=== PATIENT | female | born 1965 | race Caucasian/White ===

== ENCOUNTER 2017-06-02 12:31 | Emergency (ER) | payer OTHER ==
[2017-06-02 12:53] VITALS: BP 129/63
--- NOTE | 2017-06-02 13:41 | UC ---
Complaint Female HPI - HPI Summary HPI Summary: Pt presents with c/o uti symptoms of frequency, urgency and dysuria. Pt also reports that she has had episodic incontinence of of stool and urine. Pt has MS and thinks that her MS is "flaring" She reports that ~ 2 weeks ago she was trying to get out of her car and she "wrenched" her right leg and knee. Pt states that she has osteoarthritis in right hip and low back pain. - History Of Current Complaint Chief Complaint: UCGU Stated Complaint: UTI SYMPTOMS Time Seen by Provider: 06/02/17 13:03 Hx Obtained From: Patient ?: No Onset/Duration: Lasting Weeks - 1 Timing: Constant Severity Initially: Mild Severity Currently: Mild Pain Intensity: 8 Character: Dull Aggravating Factor(s): Movement Associated Signs And Symptoms: Positive: Back Pain - Allergies/Home Medications Allergies/Adverse Reactions: Allergies Allergy/AdvReac Type Severity Reaction Status Date / Time Amoxicillin [From Augmentin] Allergy Difficulty Verified 05/07/14 14:45 Breathing Bee Venom Allergy Anaphylatic Verified 06/02/17 12:53 Shock Clavulanic Acid Allergy Difficulty Verified 05/07/14 14:45 [From Augmentin] Breathing Latex Allergy Hives Verified 06/02/17 12:53 Sulfamethoxazole Allergy Difficulty Verified 05/07/14 14:45 w/Trimethoprim Breathing [From Bactrim] chg scrub Allergy Hives Uncoded 06/02/17 12:53 Home Medications: Home Medications Meloxicam 7.5 mg PO BID 06/02/17 [History Confirmed 06/02/17] amLODIPine TAB* [Norvasc 5 mg TAB*] 10 mg PO DAILY 06/02/17 [History Confirmed 06/02/17] PMH/Surg Hx/FS Hx/Imm Hx Previously Healthy: No - MS - Surgical History Surgical History: Yes Surgery Procedure, Year, and Place: choley 1986. 92, 85. gastric sleeve 2016 - Family History Known Family History: Positive: Cardiac Disease - Social History Alcohol Use: Daily Alcohol Amount: 1/2 glass wine Substance Use Type: None Smoking Status (MU): Never Smoked Tobacco Have You Smoked in the Last Year: No - Immunization History Most Recent Influenza Vaccination: no Review of Systems Constitutional: Negative Skin: Negative Eyes: Negative ENT: Negative Respiratory: Negative Cardiovascular: Negative Gastrointestinal: Negative Genitourinary: Negative Motor: Weakness - secondary to MS Neurovascular: Decreased Sensation - lower extremities, secondary to MS Musculoskeletal: Myalgia - low back Neurological: Negative Psychological: Negative All Other Systems Reviewed And Are Negative: Yes Physical Exam Triage Information Reviewed: Yes Appearance: Well-Appearing Vital Signs: Initial Vital Signs Temp 98.6 F 06/02/17 12:44 Pulse 62 06/02/17 12:44 Resp 14 06/02/17 12:44 BP 129/63 06/02/17 12:44 Pulse Ox 100 06/02/17 12:44 Vital Signs Reviewed: Yes Eye Exam: Normal ENT Exam: Normal Neck exam: Normal Respiratory Exam: Normal Cardiovascular Exam: Normal Abdominal Exam: Normal Musculoskeletal Exam: Normal - baseline for preexisting MS Neurological Exam: Normal - has history of MS Psychological Exam: Normal Skin Exam: Normal Complaint Female Dx - Course Course Of Treatment: I disucssed with the pt the need to follow up with her PCP , MS and orthopedic provider. Pt verbalized understanding and agreed to plan of care. - Differential Dx/Diagnosis Differential Diagnosis/HQI/PQRI: Urinary Tract Infection Provider Diagnoses: Hematuria. low back pain Discharge - Discharge Plan Condition: Stable Disposition: HOME Patient Education Materials: Low Back Strain (ED), Hematuria (ED) Referrals: Non Staff,Doctor [Primary Care Provider] - 1 Day (Please follow up with your PCP and your MS provider or orthopecdic provider as soon as possible. )
== END 2017-06-02 13:24 | disposition home or self-care (01) ==
LOC: UCCORT 12:31
DX: M54.5 Low back pain (principal); R31.9 Hematuria, unspecified; G35 Multiple sclerosis
CPT/HCPCS: 81003; 99201; G0463

== ENCOUNTER 2019-09-23 13:24 | Emergency (ER) | payer BC, OTHER ==
--- OUTSIDE RECORDS SUMMARY | 2019-09-23 13:31 | XMS REPORT | Continuity of Care Document ---
:1965 External Reference #:[id number] Author Name Alexa De La Vega NP (transmitted by agent of provider Ana Cristina Gomez) Address [address] [place] [id number] Care Team Providers Name Role Phone Peter Via PA - Urology Care Team Information [employer] [phone] Margarito White MD - Gastroenterology Care Team Information [employer] Drafting Teacher [phone] Asad Hein M.D. - Oral and Care Team Information [employer] Drafting Teacher [phone] Maxillofacial Radiology Eliazar Stevens MD - Surgery Care Team Information [employer] Drafting Teacher [phone] Problems Active Problems Provider Date Multiple sclerosis Chuck Jain RPA Onset: 04/02/2012 Constipation Chuck Jain RPA Onset: 04/02/2012 H/O: non-drug allergy Chuck Jain RPA Onset: 04/02/2012 Medications Sole Leveler (Current) Use Encounter Chuck Jain RPA Onset: Abnormal urinary stream Chuck Jain RPA Onset: 04/21/2012 Backache Chuck Jain RPA Onset: 04/21/2012 Family history of diabetes mellitus Chuck Jain RPA Onset: 11/30/2012 Abnormal glucose level Chuck Jain RPA Onset: 11/30/2012 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 Changes in skin texture Chuck Jain RPA Onset: 02/23/2013 Cellulitis Chuck Jain RPA Onset: 05/11/2013 Disorder of skin and/or subcutaneous tissue Chuck Jain RPA Onset: Eruption Chuck Jain RPA Onset: 05/25/2013 Acute sinusitis Chuck Jain, RPA Onset: 09/27/2013 Paronychia of finger Chuck Jain, RPA Onset: 09/27/2013 Acute bronchitis Chuck Jain, RPA Onset: 09/30/2013 Hematuria syndrome Chuck Jain, 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 Screening mammography SusyChuck agrawal, RPA Onset: 06/02/2014 Taking medication Chuck Jain, RPA Onset: 11/14/2014 Screening for osteoporosis Chuck Jain, RPA Onset: 06/05/2018 Adult health examination Chuck Jain, RPA Onset: 06/05/2018 Other hemorrhoids Chuck Jain, RPA Onset: 05/14/2018 Jaw pain Chuck Jain, RPA Onset: 03/06/2018 Edema SusyChuck agrawal, RPA Onset: 09/04/2017 Pain in left lower limb Chuck Jain RPA Onset: 09/04/2017 Urinary tract infectious disease Chuck Jain, RPA Onset: 01/31/2017 Screening for malignant neoplasm of colon Chuck Jain, RPA Onset: 2014 Laboratory Examination, Unspecified Chuck Jain, RPA Onset: 05/29/2015 Screening for malignant neoplasm of cervix Chuck Jain, RPA Onset: 05/29 Gynecologic examination Chuck Jain, RPA Onset: 05/29/2015 Dysphagia SusyChuck agrawal, RPA Onset: 05/22/2015 Hyperlipidemia SusyChuck agrawal, RPA Onset: 04/25/2015 Essential hypertension Chuck Jain RPA Onset: 04/11/2015 Myalgia & Myositis Unspecified Chuck Jain RPA Onset: 04/11/2015 Dizziness and giddiness Chuck Jain, RPA Onset: 04/11/2015 Arthralgia of the pelvic region and thigh Chuck Jain RPA Onset: 2014 Stress SusyChuck agrawal, RPA Onset: 11/14/2014 Vitamin deficiency Chuck Jain, RPA Onset: 11/14/2014 Social History Type Date Description Comments Sex Unknown ETOH Use Rarely consumes alcohol Tobacco Use Start: Unknown Patient has never smoked Recreational Drug Use Denies Drug Use Smoking Status Reviewed: 07/23/19 Patient has never smoked Tattoo/Piercing Tattoo shoulder Tattoo/Piercing Pierced ears Allergies, Adverse Reactions, Alerts Active Allergies Reaction Severity Comments Date Sulfa Antibiotics hives 04/02/2012 Augmentin hives 04/02/2012 Bee Sting anaphalaxis 04/02/2012 Wasps hives 04/02/2012 Medications Active Medications SIG Qnty Indications Ordering Date Provider Azithromycin 2 today, 1 daily 6tabs J01.90 [place], 07/23/2019 250mg Tablets for 4 days MITCHELL Liu Methylprednisolone take as directed 21units J01.90 [place], 07/23/2019 4mg TBPK by package MITCHELL Liu insert Tizanidine HCL take 1-2 at 60caps M79.10 [place], 07/23/2019 4mg Capsules bedtime for back MITCHELL Liu spasms Albuterol Sulfate HFA 2 puffs every 4 25.5gm J06.9 [place], 07/23/2019 hours as needed MITCHELL Liu 108(90Base) mcg/Act for cough or Aerosol shortness of breath Proventil HFA 2 puffs every 20.1gm J06.9 [place], 07/23/2019 108(90Base) four hours as MITCHELL Liu mcg/Act Aerosol needed for shortness of breath/cough Nystatin apply to 30g E78.5 [place], 06/05/2018 888878Dnty/GM Cream affected area Ana Cristina twice a day Epipen 2-Barry as directed 1units V15.09 [place], 04/02/2012 0.3mg/0.3ML Device Ana Cristina Ventolin HFA 2 puffs q4hr as Unknown 108(90Base) needed sob mcg/Act Aerosol Copaxone 40 MG Every Unknown 20mg/ml Soln Prefill Other Day Syringe Biotin 1 by mouth every Unknown 1000mcg Tablets day Multi Vitamin 1 by mouth every Unknown Tablets day Vitamin B-12 Unknown 500mcg Lozenges Colace 1 po bid 60caps Unknown 100mg Capsules Provigil 1 po qd Unknown 200mg Tablets Calcium 500 +D 1 po qd Unknown [id number] Tablets Vitamin D-1000 1 po qd Unknown 1000Unit Tablets Zofran 1 po 8 hours prn Unknown 8mg Tablets nausea Immunizations CPT Code Status Date Vaccine Lot # U-Flu Given 08/06/2017 Influenza,Unspecified Vital Signs Date Vital Result Comment 07/23/2019 8:36am Height 61 inches 5'1" Weight 211.00 lb BP Systolic Recheck 112 mmHg BP Diastolic Recheck 60 mmHg Heart Rate 70 /min Respiratory Rate 14 /min Pain Level Average Daily 5 Sick BMI (Body Mass Index) 39.9 kg/m2 06/18/2019 8:07am Height 61 inches 5'1" Weight 212.00 lb BP Systolic Recheck 139 mmHg BP Diastolic Recheck 70 mmHg Heart Rate 68 /min Respiratory Rate 14 /min Pain Level Average Daily 0 BMI (Body Mass Index) 40.1 kg/m2 Results Test Acquired Date Facility Test Result H/L Range Note CBC With Diff 07/23/2019 [facility] WBC 4.0 K/UL Normal 4.0-10.5 RBC 4.63 M/UL Normal 4.00-5.20 Hemoglobin 13.8 GM/DL Normal 12.2-15.5 Hematocrit 43.0 % Normal 37.0-47.0 MCV 92.9 FL Normal 77.0-100.0 MCH 29.8 pg Normal 26.0-32.0 MCHC 32.1 g/dL Normal 32.0-36.0 RDW 13.0 % Normal 11.5-14.0 Platelet Count 220 K/UL Normal 125-425 MPV 12.3 FL High 7.4-10.4 Absolute Neut 2.2 K/UL Normal 1.4-8.4 Absolute Lymph 0.8 K/UL Low 1.0-4.0 Absolute [place] 1.0 K/UL Normal 0.0-1.5 Absolute Eos 0.0 K/UL Normal 0.0-0.7 Absolute Baso 0.0 K/UL Normal 0.0-0.1 Neut% 55 % Normal 35-78 Lymph% 20 % Normal 20-42 [place]% 24 % High 0-15 Eos% 0.5 % Normal 0.0-10.0 Baso% 1 % Normal 0-2 Comprehensive Metabolic Panel 07/23/2019 [facility] Sodium 138 mmol/L Normal 137-145 Potassium 4.1 mmol/L Normal 3.5-5.3 Chloride 103 mmol/L Normal 98-107 Carbon Dioxide 29 mmol/L Normal 21-32 Anion Gap 6 Low 9-17 Glucose 80 mg/dL Normal 75-110 1 BUN 8 mg/dL Normal 7-20 Creatinine 0.8 mg/dL Normal 0.8-1.5 BUN/Creat Ratio 10 Calcium 9.4 mg/dL Normal 8.4-10.2 Total Protein 7.7 g/dL Normal 6.1-8.1 Albumin 4.2 g/dL Normal 3.0-5.1 Alb/Glob Ratio 1.2 Normal 1.1-1.8 Bilirubin, Total 0.6 mg/dL Normal 0.1-1.5 Alk Phosphatase 63 IU/L Normal 39-122 Ast (Sgot) 23 IU/L Normal 5-40 Alt (SGPT) 16 IU/L Normal 7-51 D-Dimer 07/23/2019 [facility] D-Dimer <150 D-DUng/mL Normal 2 (Quantitative) (Quantitative) Estimated Glomerular 07/23/2019 [facility] Egfr - Non- >60 sq.meters Normal 3 Filtration Rate [place] Egfr - >60 sq.meters Normal 4 CBC With Diff 06/18/2019 [facility] WBC 4.8 K/UL Normal 4.0-10.5 RBC 4.67 M/UL Normal 4.00-5.20 Hemoglobin 13.9 GM/DL Normal 12.2-15.5 Hematocrit 43.5 % Normal 37.0-47.0 MCV 93.1 FL Normal 77.0-100.0 MCH 29.8 pg Normal 26.0-32.0 MCHC 32.0 g/dL Normal 32.0-36.0 RDW 13.2 % Normal 11.5-14.0 Platelet Count 247 K/UL Normal 125-425 MPV 11.5 FL High 7.4-10.4 Absolute Neut 2.4 K/UL Normal 1.4-8.4 Absolute Lymph 1.9 K/UL Normal 1.0-4.0 Absolute [place] 0.4 K/UL Normal 0.0-1.5 Absolute Eos 0.1 K/UL Normal 0.0-0.7 Absolute Baso 0.0 K/UL Normal 0.0-0.1 Neut% 49 % Normal 35-78 Lymph% 39 % Normal 20-42 [place]% 9 % Normal 0-15 Eos% 2.1 % Normal 0.0-10.0 Baso% 1 % Normal 0-2 Comprehensive Metabolic Panel 06/18/2019 [facility] Sodium 140 mmol/L Normal 137-145 Potassium 4.2 mmol/L Normal 3.5-5.3 Chloride 106 mmol/L Normal 98-107 Carbon Dioxide 27 mmol/L Normal 21-32 Anion Gap 7 Low 9-17 Glucose 80 mg/dL Normal 75-110 5 BUN 13 mg/dL Normal 7-20 Creatinine 0.8 mg/dL Normal 0.8-1.5 BUN/Creat Ratio 16 Calcium 9.7 mg/dL Normal 8.4-10.2 Total Protein 7.3 g/dL Normal 6.1-8.1 Albumin 4.0 g/dL Normal 3.0-5.1 Alb/Glob Ratio 1.2 Normal 1.1-1.8 Bilirubin, Total 0.5 mg/dL Normal 0.1-1.5 Alk Phosphatase 65 IU/L Normal 39-122 Ast (Sgot) 22 IU/L Normal 5-40 Alt (SGPT) 23 IU/L Normal 7-51 Lipid Panel (CMH) 06/18/2019 [facility] Cholesterol 207 mg/dL High 100-200 6 Triglycerides 95 mg/dL Normal 40-150 HDL 52 mg/dL Normal 30-80 LDL 136.00 mg/dL High 7 Risk 3.98 8 TSH (Ultrasens.) 06/18/2019 [facility] TSH (Ultrasens.) 1.150 Normal 0.380- 4.710 MIU/L Vitamin D 06/18/2019 [facility] Vitamin D 40 ng/ml 9 (25-Hydroxy) (25-Hydroxy) Vitamin B12 06/18/2019 [facility] Vitamin B12 895 pg/mL Normal 235-930 Protime And Inr 06/18/2019 [facility] Prothrombin Time 11.0 SEC Normal 9.7- 13.9 Inr 0.98 10 D-Dimer 06/18/2019 [facility] D-Dimer <150 D-DUng/mL Normal 11 (Quantitative) (Quantitative) Non-HDL Cholesterol 06/18/2019 [facility] Non-HDL Cholesterol 155 mg/dL High 60-1 12 00 Estimated 06/18/2019 [facility] Egfr - Non- >60 sq.meters Normal 13 Glomerular [place] Filtration Rate Egfr - >60 sq.meters Normal 14 Lyme (B 06/18/2019 [facility] Lyme (B.Burgdorferi) NEGATIVE Normal 15 Burgdorferi) AB AB Screen W/Reflex Antinuclear AB 06/18/2019 [facility] Antinuclear AB, Positive Abnormal <1:8 (Dominique) 1:160 0 (Neg ativ e) Dominique Titer 1:160 Dominique Pattern Speckled 16 1 Reference Ranges: Normal Fasting Glucose ........65-99 MG/DL Pre-Diabetes ......100-125 MG/DL Provisional Diagnosis of Diabetes .........>125 MG/DL 2 <243 D-Dimer results are FDA approved for the exclusion of DVT and PE when used in conjunction with pre-test probability scores and a D-Dimer cut off value of 230 D-DU ng/ml in the outpatient setting. A D-Dimer value greater than 243 D-DU ng/ml can be used to evaluate disseminated intravascular coagulation (DIC). . 3 >60 mL/min/1.73 4 >60 mL/min/1.73 Potential Chronic Kidney Disease: <60ml/min/1.73sq meters Kidney Failure: <15ml/min/1.73sq meters 5 Reference Ranges: Normal Fasting Glucose ........65-99 MG/DL Pre-Diabetes ......100-125 MG/DL Provisional Diagnosis of Diabetes .........>125 MG/DL 6 Cholesterol Ranges: Desirable <200 MG/DL Borderline High 200-239 MG/DL High >239 MG/DL ............................... 7 <100 8 CHD RISK FACTOR VS CHOLESTEROL/HDL RATIO RELATIVE TOTAL CHOL/HDL RATIO RISK FOR CHD MALE FEMALE [address] CHD 3.4 3.3 AVERAGE 4.9 4.4 2 X AVERAGE 9.6 7.0 3 X AVERAGE 24.0 11.0 9 Deficient <20ng/ml Insufficient 20-<30ng/ml Sufficient 30-100ng/ml Potential Toxicity >100ng/ml 10 LESS INTENSE THERAPEUTIC RANGE: 2.00 TO 3.00 MORE INTENSE THERAPEUTIC RANGE: 2.50 TO 3.50 THERAPEUTIC RANGE FOR MECHANICAL HEART VALVE: 2.50 TO 3.50 Note: The INR is intended to be used only for patients on coumadin type anticoagulants at stable dosing levels 11 <243 D-Dimer results are FDA approved for the exclusion of DVT and PE when used in conjunction with pre-test probability scores and a D-Dimer cut off value of 230 D-DU ng/ml in the outpatient setting. A D-Dimer value greater than 243 D-DU ng/ml can be used to evaluate disseminated intravascular coagulation (DIC). . 12 LDL Non-HDLC High Risk <100 <130 (Optional for Very High Risk) (<70) (<100) Moderate Risk <130 <160 (Optional for Moderately High Risk) (<100) (<130) Low Risk <160 <190 For assesment of risk for ischemic heart disease, please visit www.nhlbi.nih.gov 13 >60 mL/min/1.73 14 >60 mL/min/1.73 Potential Chronic Kidney Disease: <60ml/min/1.73sq meters Kidney Failure: <15ml/min/1.73sq meters 15 Reference Range: Negative: Absence of detectable Borrelia burgdorferi antibodies. A Negative result does not exclude the possibility of Borrelia burgdorferi infection. If early Lyme disease is suspected, a second sample should be collected and retested two to four weeks later. Equivocal: Current testing guidelines recommend that all samples with Equivocal results be tested further by a standardized Western blot assay. Specimen sent to reference laboratory for follow up testing. Positive: Presence of detectable Borrelia burgdorferi antibodies. Current testing guidelines recommend that all samples with Positive results be tested further by a standardized Western blot assay. Specimen sent to reference laboratory for follow up testing. Borrelia burgdorferi screening test results should only be used and interpreted in the context of the overall clinical picture. Due to method variability, Borrelia burgdorferi screening results obtained with this assay may not be used interchangeably with values obtained with different fire operations forester's assay methods. Borrelia burgdorferi testing was performed on the [employer] Liaison XL system using a chemiluminescent immunoassay (CLIA). 16 Test Performed by: [address] [address] Outsole Scheduler: Kulwant Yarbrough M.D. Ph.D.; CLIA# [id number] Procedures Date Code Description Status 09/29/2008 [id number] Colonoscopy Completed Medical Devices Description No Information Available Encounters Type Date Location Provider Dx Diagnosis Office Visit 07/23/2019 8:30a Main Office Alexa De La Vega NP D69.0 Allergic purpura G35 Multiple sclerosis J06.9 Acute upper respiratory infection, unspecified Z12.31 Encntr screen mammogram for malignant neoplasm of breast J01.90 Acute sinusitis, unspecified M79.10 Myalgia, unspecified site F45.8 Other somatoform disorders M79.605 Pain in left leg Z68.39 Body mass index (BMI) 39.0-39.9, adult Office Visit 06/18/2019 8:00a Main Office Alexa De La Vega, R94.5 Abnormal results BROADCAST SYSTEMS ENGINEER of liver function studies G43.119 Migraine with aura, intractable, without status migrainosus Z00.00 Encntr for general adult medical exam w/o abnormal findings D69.0 Allergic purpura Z68.41 Body mass index (BMI) 40.0-44.9, adult Office Visit 05/21/2019 10:00a Main Office Alexa De La Vega, 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 G35 Multiple sclerosis Z68.41 Body mass index (BMI) 40.0-44.9, adult Assessments Date Code Description Provider 07/23/2019 D69.0 Allergic purpura Alexa De La Vega NP 07/23/2019 G35 Multiple sclerosis Alexa De La Vega NP 07/23/2019 J06.9 Acute upper respiratory infection, Alexa De La Vega BROADCAST SYSTEMS ENGINEER unspecified 07/23/2019 Z12.31 Encounter for screening mammogram for Alexa De La Vega NP malignant neoplasm of breast 07/23/2019 J01.90 Acute sinusitis, unspecified Alexa De La Vega NP 07/23/2019 M79.10 Myalgia, unspecified site Alexa De La Vega NP 07/23/2019 F45.8 Other somatoform disorders Alexa De La Vega NP 07/23/2019 M79.605 Pain in left leg Alexa De La Vega BROADCAST SYSTEMS ENGINEER 07/23/2019 Z68.39 Body mass index (BMI) 39.0-39.9, adult Alexa De La Vega NP 06/18/2019 R94.5 Abnormal results of liver function studies Alexa De La Vega NP 06/18/2019 G43.119 Migraine with aura, intractable, without Alexa De La Vega NP status migrainosus 06/18/2019 Z00.00 Encounter for general adult medical Alexa De La Vega NP examination without abnormal findings 06/18/2019 D69.0 Allergic purpura Alexa De La Vega NP 06/18/2019 Z68.41 Body mass index (BMI) 40.0-44.9, adult Alexa De La Vega NP 05/21/2019 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 Alexa De La Vega NP 05/21/2019 G35 Multiple sclerosis Alexa De La Vega NP 05/21/2019 Z68.41 Body mass index (BMI) 40.0-44.9, adult Alexa De La Vega NP Plan of Treatment 07/23/2019 - Alexa De La Vega NPD69.0 Allergic pvxgndoO33 Multiple zrgcrerpjN23.9 Acute upper respiratory infection, unspecifiedNew Medication: Albuterol Sulfate HFA 108(90 Base) mcg/Act - 2 puffs every 4 hours as needed for cough or shortness of breathProventil HFA 108(90 Base) mcg/Act - 2 puffs every four hours as needed for shortness of breath/coughComments:RESTDRINK WATERWASH JQSZIV98.31 Encounter for screening mammogram for malignant neoplasm of breastNew Xrays:Mammography, Screening, Bilateral, Ordered: 07/23/19BL Breast Ultrasound as Needed, Ordered: 07/23/19J01.90 Acute sinusitis, unspecifiedNew Medication:Azithromycin 250 mg - 2 today, 1 daily for 4 daysMethylprednisolone 4 mg - take as directed by package insertComments:STEAM SINUSESDRINK WATEREAT YOGURTWASH HANDSLYSOL YOUR HOUSEWASH YOUR BEDING IN HOT WATERCHANGE OUT PILLOW CASES DAILYTOOTHBRUSHES MAKE SURE TO GET NEWKEEP YOUR HANDS OFF YOUR FACE MUCINEX (GUIAFENICIN) 600 MG ONE BY MOUTH TWICE DAILYALLEGRA (FENOFEXADINE) 180 MG ONE VWBMSK30.10 Myalgia, unspecified siteNew Medication:Tizanidine HCL 4 mg - take 1-2 at bedtime for back lrvofqW01.8 Other somatoform ntksvakyaC52.605 Pain in left legZ68.39 Body mass index (BMI) 39.0- 39.9, adult Functional Status Description No Information Available Mental Status Mental Condition Comment Date Status None Active Referrals Refer to Reason for Referral Status Appt Date Scooter Pan MD + DOMINIQUE SPOKE WITH OFFICE, REFERAL Patient Notified RECIEVED, WILL CALL PT TO MAKE APPT. 07-06-19 [facility] [address] [phone]
--- OUTSIDE RECORDS SUMMARY | 2019-09-23 13:31 | XMS REPORT | Continuity of Care Document ---
:1965 External Reference #:[id number] Author Name De La Vega Alexa, MITCHELL Address [address] [place] [address] Care Team Providers Name Role Phone Neftali ALBERTS - Urology Care Team Information Ice Plant Operator [phone] Margarito White MD - Gastroenterology Care Team Information Ice Plant Operator Asad Hein M.D. - Oral and Care Team Information Ice Plant Operator [phone] Maxillofacial Radiology Eliazar Stevens MD - Surgery Care Team Information Ice Plant Operator Problems Active Problems Provider Date Multiple sclerosis Chuck Jain RPA Onset: 04/02/2012 Constipation Chuck Jain RPA Onset: 04/02/2012 H/O: non-drug allergy Chuck Jain RPA Onset: 04/02/2012 Medications Signal Circuit Designer (Current) Use Encounter Chuck Jain RPA Onset: [...] Jain RPA Onset: 05/25/2013 Acute sinusitis Chuck Jain RPA Onset: 09/27/2013 Paronychia of finger SusyChuck agrawal, RPA Onset: 09/27/2013 Acute bronchitis Chuck Jain, RPA Onset: 09/30/2013 Hematuria syndrome Chuck Jain, 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 Screening mammography SusyChuck agrawal, RPA Onset: 06/02/2014 Taking medication Chuck Jain, RPA Onset: 11/14/2014 Screening for osteoporosis Chuck Jain RPA Onset: 06/05/2018 Adult health examination Chuck Jain RPA Onset: 06/05/2018 Other hemorrhoids Chuck Jain RPA Onset: 05/14/2018 Jaw pain Chuck Jain, RPA Onset: 03/06/2018 Edema Chuck Jain RPA Onset: 09/04/2017 Pain in left lower limb Chuck Jain RPA Onset: 09/04/2017 Urinary tract infectious disease Chuck Jain, RPA Onset: 01/31/2017 Screening for malignant neoplasm of colon Chuck Jain RPA Onset: 2014 Laboratory Examination, Unspecified Chuck Jain RPA Onset: 05/29/2015 Screening for malignant neoplasm of cervix Chuck Jain, RPA Onset: 05/29 Gynecologic examination Chuck Jain, RPA Onset: 05/29/2015 Dysphagia SusyChuck agrawal, RPA Onset: 05/22/2015 Hyperlipidemia SusyChuck agrawal, RPA Onset: 04/25/2015 Essential hypertension Chuck Jain, RPA Onset: 04/11/2015 Myalgia & Myositis Unspecified Chuck Jain, RPA Onset: 04/11/2015 Dizziness and giddiness Chuck Jain, RPA Onset: 04/11/2015 Arthralgia of the pelvic region and thigh Chuck Jain RPA Onset: 2014 Stress SusyChuck agrawal RPA Onset: 11/14/2014 Vitamin deficiency Chuck Jain RPA Onset: 11/14/2014 Social History Type Date [...] Azithromycin 2 today, 1 daily 6tabs J01.90 [facility], 07/23/2019 250mg Tablets for 4 days MITCHELL Liu Methylprednisolone take as directed 21units J01.90 Kinta, 07/23/2019 4mg TBPK by package MITCHELL Liu insert Tizanidine HCL take 1-2 at 60caps M79.10 Kinta, 07/23/2019 4mg Capsules bedtime for back MITCHELL Liu spasms Albuterol Sulfate HFA 2 puffs every 4 25.5gm J06.9 Kinta, 07/23/2019 hours as needed MITCHELL Liu 108(90Base) mcg/Act for cough or Aerosol shortness of breath Proventil HFA 2 puffs every 20.1gm J06.9 Kinta, 07/23/2019 108(90Base) four hours as MITCHELL Liu mcg/Act Aerosol needed for shortness of breath/cough Nystatin apply to 30g E78.5 [facility], 06/05/2018 [id number]/GM Cream affected area Ana Cristina twice a day Epipen 2-Barry as directed 1units V15.09 [facility], 04/02/2012 0.3mg/0.3ML Device Ana Cristina Ventolin HFA [...] Calcium 500 +D 1 po qd Unknown [id number] Tablets Vitamin D-1000 1 po qd Unknown [...] H/L Range Note CBC With Diff 07/23/2019 [facility] WBC 4.0 K/UL Normal 4.0-10.5 [...] Absolute Lymph 0.8 K/UL Low 1.0-4.0 Absolute Merrick 1.0 K/UL Normal 0.0-1.5 Absolute Eos 0.0 K/UL Normal 0.0-0.7 Absolute Baso 0.0 K/UL Normal 0.0-0.1 Neut% 55 % Normal 35-78 Lymph% 20 % Normal 20-42 Merrick% 24 % High 0-15 Eos% 0.5 % Normal 0.0-10.0 Baso% 1 % Normal 0-2 Comprehensive Metabolic Panel 07/23/2019 [facility] Sodium 138 mmol/L Normal 137-145 [...] (SGPT) 16 IU/L Normal 7-51 D-Dimer 07/23/2019 [facility] D-Dimer <150 D-DUng/mL Normal 2 (Quantitative) (Quantitative) Estimated Glomerular 07/23/2019 [facility] Egfr - Non- >60 sq.meters Normal 3 Filtration Rate Canadian Egfr - >60 sq.meters Normal 4 CBC With Diff 06/18/2019 [facility] WBC 4.8 K/UL Normal 4.0-10.5 [...] Absolute Lymph 1.9 K/UL Normal 1.0-4.0 Absolute Merrick 0.4 K/UL Normal 0.0-1.5 Absolute Eos 0.1 K/UL Normal 0.0-0.7 Absolute Baso 0.0 K/UL Normal 0.0-0.1 Neut% 49 % Normal 35-78 Lymph% 39 % Normal 20-42 Merrick% 9 % Normal 0-15 Eos% 2.1 % Normal 0.0-10.0 Baso% 1 % Normal 0-2 Comprehensive Metabolic Panel 06/18/2019 [facility] Sodium 140 mmol/L Normal 137-145 [...] IU/L Normal 7-51 Lipid Panel (CM[facility]) 06/18/2019 [facility] Cholesterol 207 mg/dL High 100-200 6 Triglycerides 95 mg/dL Normal 40-150 HDL 52 mg/dL Normal 30-80 LDL 136.00 mg/dL High 7 Risk 3.98 8 TSH (Ultrasens.) 06/18/2019 [facility] TSH (Ultrasens.) 1.150 Normal 0.380- 4.710 MIU/L Vitamin D 06/18/2019 [facility] Vitamin D 40 ng/ml 9 (25-Hydroxy) (25-Hydroxy) Vitamin B12 06/18/2019 [facility] Vitamin B12 895 pg/mL Normal 235-930 Protime And Inr 06/18/2019 [facility] Prothrombin Time 11.0 SEC Normal 9.7- 13.9 Inr 0.98 10 D-Dimer 06/18/2019 [facility] D-Dimer <150 D-DUng/mL Normal 11 (Quantitative) (Quantitative) Non-HDL Cholesterol 06/18/2019 [facility] Non-HDL Cholesterol 155 mg/dL High 60-1 12 00 Estimated 06/18/2019 [facility] Egfr - Non- >60 sq.meters Normal 13 Glomerular Canadian Filtration Rate Egfr - >60 sq.meters Normal 14 Lyme (B 06/18/2019 [facility] Lyme (B.Burgdorferi) NEGATIVE Normal 15 Burgdorferi) AB AB Screen W/Reflex Antinuclear AB 06/18/2019 [facility] Antinuclear AB, Positive Abnormal <1:8 [...] used interchangeably with values obtained with different discovery guide's assay methods. Borrelia burgdorferi testing was performed on the [employer] Liaison XL system using a chemiluminescent immunoassay (CLIA). 16 Test Performed by: [address] [address] Leader Tier: Kulwant Yarbrough M.D. 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 G35 Multiple sclerosis Z68.41 Body mass index (BMI) 40.0-44.9, adult Assessments Date Code Description Provider 07/23/2019 D69.0 Allergic purpura Alexa De La Vega NP 07/23/2019 G35 Multiple sclerosis Alexa De La Vega NP 07/23/2019 J06.9 Acute upper respiratory infection, Alexa De La Vega, BLOCK STACKER unspecified 07/23/2019 Z12.31 Encounter for screening mammogram for Alexa De La Vega NP malignant neoplasm of breast 07/23/2019 J01.90 Acute sinusitis, unspecified Alexa De La Vega BLOCK STACKER 07/23/2019 M79.10 Myalgia, unspecified site Alexa De La Vega NP 07/23/2019 F45.8 Other somatoform disorders Alexa De La Vega NP 07/23/2019 M79.605 Pain in left leg Alexa De La Vega NP 07/23/2019 Z68.39 Body mass index (BMI) 39.0-39.9, [...] - Alexa De La Vega NPD69.0 Allergic pucloosJ67 Multiple woawijgyvW32.9 Acute upper respiratory infection, unspecifiedNew Medication: Albuterol Sulfate HFA 108(90 Base) mcg/Act - 2 puffs every 4 hours as needed for cough or shortness of breathProventil HFA 108(90 Base) mcg/Act - 2 puffs every four hours as needed for shortness of breath/coughComments:RESTDRINK WATERWASH YPHMAL82.31 Encounter for screening mammogram for malignant neoplasm [...] MOUTH TWICE DAILYALLEGRA (FENOFEXADINE) 180 MG ONE UWMBAX05.10 Myalgia, unspecified siteNew Medication:Tizanidine HCL 4 mg - take 1-2 at bedtime for back dzefloX20.8 Other somatoform fvhktomjfK65.605 Pain in left legZ68.39 Body mass index (BMI) 39.0- 39.9, adult Functional Status Description No Information Available Mental Status Mental Condition Comment Date Status None Active Referrals Refer to Reason for Referral Status Appt Date Scooter Pan MD + DOMINIQUE SPOKE WITH OFFICE, REFERAL Patient Notified RECIEVED, WILL CALL PT TO MAKE APPT. 07-06-19 CK 1 Melo SOLIS [facility] [address] [phone]
[2019-09-23 14:36] VITALS: BP 144/86
--- NOTE | 2019-09-23 15:16 | UC ---
Minor Trauma HPI - HPI Summary HPI Summary: 54-year-old female presents with complaints of right wrist pain and left knee pain after accidentally slipping on ice and falling 2 days ago. States pain and wrist that is worsened with flexion and any attempt to mds manager anything. The knee pain is located directly over the patella and she states that pain is only present if pressure is applied to that area. She was able to walk immediately after the injury. She continues to be able to walk and bear weight without pain. She has taken acetaminophen 1 dose with some relief of the pain. Denies any numbness or tingling. - History of Current Complaint Chief Complaint: UCTrauma Stated Complaint: RT ARM/L KNEE INJ Time Seen by Provider: 09/23/19 15:08 Hx Obtained From: Patient Pain Intensity: 4 - Allergies/Home Medications Allergies/Adverse Reactions: Allergies Allergy/AdvReac Type Severity Reaction Status Date / Time amoxicillin [From Augmentin] Allergy Difficulty Verified 09/23/19 14:38 Breathing bee venom protein (honey bee) Allergy Anaphylatic Verified 09/23/19 14:38 Shock clavulanic acid Allergy Difficulty Verified 09/23/19 14:38 [From Augmentin] Breathing clindamycin Allergy Hives Verified 09/23/19 14:38 latex Allergy Hives Verified 09/23/19 14:38 sulfamethoxazole Allergy Difficulty Verified 09/23/19 14:38 [From Bactrim] Breathing trimethoprim [From Bactrim] Allergy Difficulty Verified 09/23/19 14:38 Breathing chg scrub Allergy Hives Uncoded 06/02/17 12:53 Home Medications: Home Medications Cholecalciferol TAB* [Vitamin D TAB*] 1,000 unit PO DAILY 09/23/19 [History Confirmed 09/23/19] Docusate Sodium [Colace] 100 mg PO DAILY 09/23/19 [History Confirmed 09/23/19] Multivitamin [Multivitamins] 1 cap PO DAILY 09/23/19 [History Confirmed 09/23/19 ] Vitamin B Complex CAP* [B Complex CAP*] 1 cap PO DAILY 09/23/19 [History Confirmed 09/23/19] PMH/Surg Hx/FS Hx/Imm Hx Previously Healthy: Yes - Surgical History Surgical History: Yes Surgery Procedure, Year, and Place: choley 1986. 92, 85. gastric sleeve 2016. left hip replacement - Family History Known Family History: Positive: Cardiac Disease - Social History Occupation: Employed Full-time Lives: With Family Alcohol Use: Weekly Alcohol Amount: 1/2 glass wine Substance Use Type: None Smoking Status (MU): Never Smoked Tobacco Have You Smoked in the Last Year: No - Immunization History Most Recent Influenza Vaccination: no Review of Systems All Other Systems Reviewed And Are Negative: Yes Constitutional: Positive: Negative Skin: Negative: Bruising Respiratory: Positive: Negative Cardiovascular: Positive: Negative Gastrointestinal: Positive: Negative Genitourinary: Positive: Negative Motor: Negative: Weakness Neurovascular: Negative: Decreased Sensation Musculoskeletal: Positive: Other: - See HPI Neurological: Positive: Negative Is Patient Immunocompromised?: No Physical Exam - Summary Physical Exam Summary: GENERAL APPEARANCE: Alert and cooperative adult female who appears to be in no acute distress. HEAD: Atraumatic. Normocephalic. NECK: Neck supple, non-tender. Full ROM. CARDIAC: Normal S1 and S2. No S3, S4 or murmurs. Rhythm is regular. There is no peripheral edema, cyanosis or pallor. Extremities are warm and well perfused. Capillary refill is less than 2 seconds. Peripheral pulses intact. LUNGS: Clear to auscultation without rales, rhonchi, wheezing or diminished breath sounds. ABDOMEN: Positive bowel sounds. Soft, nondistended, nontender. No guarding or rebound. No masses or hepatosplenomegally. MUSKULOSKELETAL: Normal muscular development. Normal gait. BACK: No spinal deformity or tenderness, decreased range of motion or muscular spasm. EXTREMITIES: Tenderness to radial wrist without gross deformity, ecchymosis, or edema. Full ROM although pain with flexion and ulnar deviation. Circulation and sensation intact. Tenderness over the left patella without gross deformity, ecchymosis, or edema. No laxity. Full ROM. Circulation and sensation intact. SKIN: Skin normal color, texture and turgor with no lesions or eruptions. Triage Information Reviewed: Yes Vital Signs: Initial Vital Signs Temp 99.2 F 09/23/19 14:29 Pulse 59 09/23/19 14:29 Resp 18 09/23/19 14:29 BP 144/86 09/23/19 14:29 Pulse Ox 100 09/23/19 14:29 Vital Signs Reviewed: Yes Diagnostics - Radiology No standard instances Radiology Interpretation Completed By: Radiologist Summary of Radiographic Findings: Order Information: KNEE LEFT 4+ VWS. INDICATION: Left knee pain since a fall 2 days earlier. COMPARISON: None. TECHNIQUE: 4 view radiograph of the left knee. FINDINGS: The visualized bones are well-corticated and properly aligned. The joint spaces are properly maintained. There is no radiographic evidence of joint effusion. There is no acute fracture, dislocation or other focal bony abnormality. IMPRESSION: Normal knee radiograph as described above. Order Information: WRIST RIGHT 3+ VWS. INDICATION: Right wrist pain after a fall. COMPARISON: None. TECHNIQUE: 3 views right wrist. REPORT: The visualized bones are properly aligned and well corticated. The joint spaces are normal.There is no fracture, dislocation or other focal osseous abnormality. IMPRESSION: No radiographically apparent fracture or dislocation of the right wrist. Minor Trauma Course/Dx - Course Course Of Treatment: 54-year-old female presents with complaints of right wrist pain and left knee pain after accidentally slipping on ice and falling 2 days ago. States pain and wrist that is worsened with flexion and any attempt to mds manager anything. The knee pain is located directly over the patella and she states that pain is only present if pressure is applied to that area. She was able to walk immediately after the injury. She continues to be able to walk and bear weight without pain. She has taken acetaminophen 1 dose with some relief of the pain. Denies any numbness or tingling. Afebrile. Hypertensive otherwise vital signs stable. Patient had tenderness to radial wrist without gross deformity, ecchymosis, or edema. Full ROM although pain with flexion and ulnar deviation. Circulation and sensation intact. Tenderness over the left patella without gross deformity, ecchymosis, or edema. No laxity. Full ROM. Circulation and sensation intact. X-ray of the wrist and knee showed no acute osseous injury. Results with the patient. Discussed that she likely had a right wrist sprain and left knee contusion and recommending conservative treatment including over- the-counter analgesics and ICE. She was placed in a cockup wrist splint by the RN. She is to follow-up with her primary care provider or with orthopedic surgery in 7 days if symptoms are not improving. Anticipatory guidance and warning symptoms are reviewed with the patient. Verbalizes understanding and agrees with of care. - Differential Dx/Diagnosis Differential Diagnosis/HQI/PQRI: Contusion(s), Fracture, Dislocation, Sprain Provider Diagnosis: Right wrist sprain, Contusion of left knee Discharge ED - Sign-Out/Discharge Documenting (check all that apply): Patient Departure All imaging exams completed and their final reports reviewed: Yes - Discharge Plan Condition: Stable Disposition: HOME Patient Education Materials: Contusion in Adults (ED), Wrist Sprain (ED) Referrals: Alexa Batista NP [Primary Care Provider] - Abe New MD [Medical Doctor] - Additional Instructions: The x-ray performed in the clinic today showed no evidence of a fracture. I suspect you have a wrist sprain and contusion (bruise) of the knee. Rest the wrist as much as possible. Wear the splint that was applied in the clinic until you are pain free. You may remove to shower but should wear at all other times. Apply ice to the affected area(s) for 15-20 minutes at least 4 times a day to help with the pain and swelling. Elevate the arm and leg to help reduce swelling. Take acetaminophen (Tylenol) according to directions as needed for pain. Follow up with your primary care provider or with orthopedic surgery in 7 days if symptoms do not improve. Seek immediate medical attention if you have severe pain not managed with pain medication, you are unable to walk or bear any weight, develop numbness or tingling in the hand, fingers, leg, foot, or toes, or have any worsening of symptoms. - Billing Disposition and Condition Condition: STABLE Disposition: Home
== END 2019-09-23 16:37 | disposition home or self-care (01) ==
LOC: UCCORT 13:24
DX: S63.501A Unspecified sprain of right wrist, initial encounter (principal); S80.02XA Contusion of left knee, initial encounter; I10 Essential (primary) hypertension; Z88.0 Allergy status to penicillin; Z88.1 Allergy status to other antibiotic agents; Z88.2 Allergy status to sulfonamides; Z91.030 Bee allergy status; Z91.040 Latex allergy status; Z91.09 Other allergy status, other than to drugs and biological substances; W00.0XXA Fall on same level due to ice and snow, initial encounter; Y92.9 Unspecified place or not applicable
CPT/HCPCS: 99212; G0463